=== PATIENT | male | born 1930 | race Caucasian/White ===

== ENCOUNTER 2017-01-25 20:00 | Emergency (ER) | payer OTHER, BC ==
[2017-01-25 20:11] VITALS: BP 124/77; PULSE 92; TEMP 98.7; BMI 27.7
--- NOTE | 2017-01-25 20:44 | PDOC ---
History of Present Illness - General History Source: Patient, Old Records Exam Limitations: No Limitations - History of Present Illness Initial Comments: 01/25/17 20:50 The patient is an 86 year old male, with a significant past medical history of hypertension, GERD, diverticulitis and prostate CA, who presents to the emergency department with abrasions to the bilateral palmar surfaces of the hands and right knee s/p mechanical trip and fall while walking his dog earlier this afternoon at approximately 1PM. The patient states that the dog lunged forward and pulled him along. The patient reports that he fell forward landing on outstretched hands in addition to his right knee. The patient denies head trauma or LOC. The patient immediately washed out the abrasions, applied bacitracin and applied bandages. The patient denies any other injury or trauma. The patient reports that his most recent Tetanus shot was 8 years ago. Allergies: None reported. Past Surgical History: Colon Resection; Bilateral Inguinal Hernia Repair. Social History: Former smoker. Reports occasional alcohol use. Denies drug use. PCP: Dr. Paul Meyer <Chelsey Cartagena - Last Filed: 01/25/17 20:57> <Luh Pickard - Last Filed: 01/26/17 03:04> - General Chief Complaint: Pain, Acute Stated Complaint: FELL WALKING DOG, ABRASIONS TO HANDS AND RIGHT KNE Time Seen by Provider: 01/25/17 20:10 Past History <Chelsey Cartagena - Last Filed: 01/25/17 20:57> - Past Medical History Anemia: No Asthma: No Cancer: Yes (PROSTATE) Cardiac Disorders: No CVA: Yes ("MICRO-INFARCTS" VISION PROBLEMS (RESOLVED)) COPD: No CHF: No Dementia: Yes (MILD) Diabetes: No GI Disorders: Yes (DIVERTICULITIS GERD) Disorders: Yes (PROSTATE CANCER) HTN: Yes Hypercholesterolemia: No Liver Disease: No Seizures: No Thyroid Disease: No - Surgical History Abdominal Surgery: Yes (COLON RESECTION FOR DIVERTICULITIS, BILATERAL INGUINAL HERNIA REPAIRED) Appendectomy: No Cardiac Surgery: No Cholecystectomy: No Lung Surgery: No Neurologic Surgery: No Orthopedic Surgery: Yes (EPIDURAL FOR PAIN) - Immunization History Td Vaccination: Yes (UTD) Immunization Up to Date: No - Psycho/Social/Smoking Cessation Hx Anxiety: No Suicidal Ideation: No Smoking Status: No Smoking History: Never smoked Have you smoked in the past 12 months: No Number of Cigarettes Smoked Daily: 0 If you are a former smoker, when did you quit?: 194 Information on smoking cessation initiated: No Hx Alcohol Use: Yes Drug/Substance Use Hx: No Substance Use Type: Alcohol Hx Substance Use Treatment: No <NeerajLuh Patterson - Last Filed: 01/26/17 03:04> - Past Medical History Allergies/Adverse Reactions: Allergies Allergy/AdvReac Type Severity Reaction Status Date / Time No Known Allergies Allergy Verified 01/25/17 20:02 Home Medications: Ambulatory Orders Multivitamin [Multivitamins] 1 each PO DAILY 04/26/13 Lisinopril/Hydrochlorothiazide [Lisinopril-Hctz 10-12.5 mg Tab] 1 each PO DAILY 02/10/14 Aspirin [Aspirin EC] 81 mg PO HS 05/03/15 Cephalexin Monohydrate [Keflex -] 500 mg PO Q8H #12 capsule 01/25/17 Omeprazole 20 mg PO DAILY 01/25/17 Review of Systems - Review of Systems Able to Perform ROS?: Yes Comments:: 01/25/17 20:50 CONSTITUTIONAL: Absent: fever, chills, diaphoresis, generalized weakness, malaise, loss of appetite HEENT: Absent: rhinorrhea, nasal congestion, throat pain, throat swelling, difficulty swallowing, mouth swelling, ear pain, eye pain, visual Changes CARDIOVASCULAR: Absent: chest pain, syncope, palpitations, irregular heart rate, lightheadedness , peripheral edema RESPIRATORY: Absent: cough, shortness of breath, dyspnea with exertion, orthopnea, wheezing, stridor, hemoptysis GASTROINTESTINAL: Absent: abdominal pain, abdominal distension, nausea, vomiting, diarrhea, constipation, melena, hematochezia GENITOURINARY: Absent: dysuria, frequency, urgency, hesitancy, hematuria, flank pain, genital pain MUSCULOSKELETAL: Absent: myalgia, arthralgia, joint swelling SKIN: Present: +Abrasions to the bilateral hands, right knee Absent: rash, itching, pallor HEMATOLOGIC/IMMUNOLOGIC: Absent: easy bleeding, easy bruising, lymphadenopathy, frequent infections ENDOCRINE: Absent: unexplained weight gain, unexplained weight loss, heat intolerance, cold intolerance NEUROLOGIC: Absent: headache, focal weakness or paresthesias, dizziness, unsteady gait, seizure, mental status changes, bladder or bowel incontinence PSYCHIATRIC: Absent: anxiety, depression, suicidal or homicidal ideation, hallucinations <Chelsey Cartagena - Last Filed: 01/25/17 20:57> *Physical Exam - Vital Signs Last Vital Signs Temp Pulse Resp BP Pulse Ox 98.7 F 92 H 16 124/77 99 01/25/17 20:08 01/25/17 20:08 01/25/17 20:08 01/25/17 20:08 01/25/17 20:08 - Physical Exam Comments: 01/25/17 20:57 GENERAL: The patient is awake, alert, and fully oriented, in no acute distress. HEAD: Normal with no signs of trauma. EYES: Pupils equal, round and reactive to light, extraocular movements intact, sclera anicteric, conjunctiva clear with no pallor. ENT: Ears normal, nares patent, oropharynx clear without exudates. Moist mucous membranes. NECK: Normal range of motion, supple without lymphadenopathy, JVD, or masses. LUNGS: Breath sounds equal, clear to auscultation bilaterally. No wheeze/ crackles. HEART: Regular rate and rhythm, normal S1 and S2 without murmur or rub. ABDOMEN: Soft/nontender/nondistended. BS wnl. No guarding or rebound. No palpable masses. No hepatosplenomegaly. EXTREMITIES: 2cm x 2cm non bleeding superficial abrasions of the bilateral midline proximal palmar aspects of the hands. Moderate point tenderness at the base of the thumb of the right hand. No deformity or ecchymosis noted. Mild edema of the bilateral proximal palms. Dorsal aspect of the distal right thigh there is a 3cm x 2cm nonbleeding full thickness skin avulsion with surrounding 2cm area of erythema and mild edema. Normal range of motion. No clubbing or cyanosis. No cords or tenderness. NEUROLOGICAL: Cranial nerves II through XII grossly intact. Normal speech, normal gait. PSYCH: Normal mood, normal affect. SKIN: Warm, dry, normal turgor, no rashes or lesions noted. <Chelsey Cartagena - Last Filed: 01/25/17 20:57> - Vital Signs Last Vital Signs Temp Pulse Resp BP Pulse Ox 98.7 F 92 H 16 124/77 99 01/25/17 20:08 01/25/17 20:08 01/25/17 20:08 01/25/17 20:08 01/25/17 20:08 <Luh Pickard - Last Filed: 01/26/17 03:04> Progress Note - Progress Note Progress Note: Documentation has been prepared under my direction and personally reviewed by me in its entirety. I attest that this documented accurately reflects all work, treatment, procedures and medical decision making performed by me. <Luh Pickard - Last Filed: 01/26/17 03:04> Medical Decision Making - Medical Decision Making As noted above, this 87-year-old man presents after falling while walking his dog several hours prior to presentation. Patient fell on hands and knees when dog lunged forward. No LOC/head or neck injury. No complaints other than bilateral hand and right knee injury. Exam as noted. Because of point tenderness at the base of his right hand, x-ray of that extremity performed. Interpretation by Dr. Lawson: No evidence of fracture dislocation Using sterile technique, wounds were cleansed and gently debrided using sterile normal saline. No obvious debris present in the wounds. Wounds covered with Xeroform dressing plus bacitracin ointment followed by sterile gauze/gauze roll. Patient will be treated with Keflex 500 mg 3 times a day for 4 days Patient will keep bandages on for 1 day then use bacitracin/Band-Aid as needed. Follow-up wound check will be with the patient's doctor within the next 3-4 days (Dr. meyer). He should return to the emergency room sooner if he notices increase in pain/swelling/redness in the area of the wounds. <Luh Pickard - Last Filed: 01/26/17 03:04> *DC/Admit/Observation/Transfer - Attestations Scribe Attestion: 01/25/17 20:46 Documentation prepared by Chelsey Cartagena, acting as medical equipment repair technician for Luh Pickard MD. <Chelsey Cartagena - Last Filed: 01/25/17 20:57> <Luh Pickard - Last Filed: 01/26/17 03:04> Diagnosis at time of Disposition: Skin abrasion, Avulsion of skin - Discharge Dispostion Disposition: HOME Condition at time of disposition: Stable - Prescriptions Prescriptions: Cephalexin Monohydrate [Keflex -] 500 mg PO Q8H #12 capsule - Referrals Referrals: Paul Meyer [Primary Care Provider] - 3 days - Patient Instructions Printed Discharge Instructions: DI for Abrasion Additional Instructions: Keflex 500 mg 3 times a day for the next 4 days Keep wound dry for 24 hours Keep original dressings in place for 24 hours then bacitracin/Band-Aid daily Follow-up with your general doctor for wound check in 3 days Return to ER if you have worsening pain/swelling or drainage from the wounds
[2017-01-25] MEDS ORDERED: CEPHALEXIN MONOHYDRATE 500 MG CAPSULE (UD) PO ONE (21:41)
[2017-01-25] MEDS ORDERED: CEPHALEXIN MONOHYDRATE 500 MG CAPSULE (UD) ONE (21:46)
== END 2017-01-25 21:50 | disposition home or self-care (01) ==
LOC: FER 20:00
DX: T14.8 Other injury of unspecified body region (principal); W18.39XA Other fall on same level, initial encounter; Y93.K1 Activity, walking an animal; Y92.9 Unspecified place or not applicable; Z85.46 Personal history of malignant neoplasm of prostate; F03.90 Unspecified dementia, unspecified severity, without behavioral disturbance, psychotic disturbance, mood disturbance, and anxiety; K21.9 Gastro-esophageal reflux disease without esophagitis; I10 Essential (primary) hypertension; Z86.73 Personal history of transient ischemic attack (TIA), and cerebral infarction without residual deficits; Z87.891 Personal history of nicotine dependence
CPT/HCPCS: 73130-TC-RT; 99281-25

== ENCOUNTER 2017-03-20 22:24 | Emergency (ER) | payer OTHER, BC ==
[2017-03-20 22:28] VITALS: BP 158/90; PULSE 68; TEMP 97.8; BMI 27.6
[2017-03-20 23:18] LABS: ALBUMIN 4.2 g/dl (3.5-5.0); ALK PHOS 49 U/L (32-92); ANION GAP 5 (8-16); BILIRUBIN,TOTAL 0.4 mg/dl (0.2-1.0); CALCIUM 9.4 mg/dl (8.4-10.2); CO2 30 mmol/L (22-28); CREATININE 1.5 mg/dl (0.6-1.3); GLUCOSE,RANDOM 133 mg/dl (74-106); SGOT/AST 18 U/L (10-42); SGPT/ALT 13 U/L (10-40); TOT PROT 6.5 g/dl (6.4-8.3)
[2017-03-20 23:21] LABS: CPK 73 IU/L (39-308)
[2017-03-20 23:32] LABS: TROPONIN I (DFP) < 0.03 ng/ml (0.03-0.50)
--- NOTE | 2017-03-21 00:31 | PDOC ---
History of Present Illness - General Chief Complaint: Chest Pain Stated Complaint: HTN, CHEST TWINGES Time Seen by Provider: 03/20/17 22:26 - History of Present Illness Initial Comments: This 87-year-old man with a history of hypertension and prostate carcinoma presents with a several hour history of intermittent "pinching-type" pain in the lateral aspect of his right chest. No history of trauma to this area. Pain is not worse with movement or with deep breathing. He has not experienced any shortness of breath, diaphoresis, nausea. Episodes of pain last seconds and resolve spontaneously. He has not noticed any rash in the area. Patient has a history of zoster, stating that he has had immunization for zoster since the original rash. Past History - Past Medical History Allergies/Adverse Reactions: Allergies Allergy/AdvReac Type Severity Reaction Status Date / Time No Known Allergies Allergy Verified 01/25/17 20:02 Home Medications: Ambulatory Orders Multivitamin [Multivitamins] 1 each PO DAILY 04/26/13 Lisinopril/Hydrochlorothiazide [Lisinopril-Hctz 10-12.5 mg Tab] 1 each PO DAILY 02/10/14 Aspirin [Aspirin EC] 81 mg PO HS 05/03/15 Cephalexin Monohydrate [Keflex -] 500 mg PO Q8H #12 capsule 01/25/17 Omeprazole 20 mg PO DAILY 01/25/17 Anemia: No Asthma: No Cancer: Yes (PROSTATE) Cardiac Disorders: No CVA: Yes ("MICRO-INFARCTS" VISION PROBLEMS (RESOLVED)) COPD: No CHF: No Dementia: Yes (MILD) Diabetes: No GI Disorders: Yes (DIVERTICULITIS GERD) Disorders: Yes (PROSTATE CANCER) HTN: Yes Hypercholesterolemia: No Liver Disease: No Seizures: No Thyroid Disease: No - Surgical History Abdominal Surgery: Yes (COLON RESECTION FOR DIVERTICULITIS, BILATERAL INGUINAL HERNIA REPAIRED) Appendectomy: No Cardiac Surgery: No Cholecystectomy: No Lung Surgery: No Neurologic Surgery: No Orthopedic Surgery: Yes (EPIDURAL FOR PAIN) - Immunization History Td Vaccination: Yes (UTD) Immunization Up to Date: No - Psycho/Social/Smoking Cessation Hx Anxiety: No Suicidal Ideation: No Smoking Status: No Smoking History: Unknown if ever smoked Have you smoked in the past 12 months: No Number of Cigarettes Smoked Daily: 0 If you are a former smoker, when did you quit?: 1940 Information on smoking cessation initiated: No Hx Alcohol Use: Yes Drug/Substance Use Hx: No Substance Use Type: Alcohol Hx Substance Use Treatment: No *Physical Exam - Vital Signs Last Vital Signs Temp Pulse Resp BP Pulse Ox 97.8 F 68 18 158/90 100 03/20/17 22:25 03/20/17 22:25 03/20/17 22:25 03/20/17 22:25 03/20/17 22:25 - Physical Exam Comments: GENERAL: Elderly man, alert and oriented 3, in no acute distress HEAD: Normal with no signs of trauma. EYES: PERRLA, EOMI, sclera anicteric, conjunctiva clear. ENT: Ears normal, nares patent, oropharynx clear without exudates. Dry mucous membranes. NECK: Normal range of motion, supple without lymphadenopathy, JVD, or masses. LUNGS: Breath sounds equal, clear to auscultation bilaterally. No wheezes, and no crackles. CHEST WALL: No rash/crepitus/tenderness noted HEART:Regular rate and rhythm, normal S1 and S2 without murmur, rub or gallop. ABDOMEN:.normal bowel sounds No guarding,tenderness or rebound.No masses No distention. EXTREMITIES: Normal range of motion, no edema. No clubbing or cyanosis. No erythema, or tenderness. NEUROLOGICAL: Cranial nerves II through XII grossly intact. Normal speech. No focal neurological deficits. MUSCULOSKELETAL: Back non-tender to palpation, no CVA tenderness SKIN: Warm, Dry, normal turgor, no rashes or lesions noted. 12-lead electrocardiogram reveals normal sinus rhythm at 58 bpm. There is poor R-wave progression but no other acute ST or T-wave abnormalities. Mobile, intervals are normal Heart Score/ECG Review - History History: Slightly suspicious - Electrocardiogram EKG: Normal - Age Age: >/= 65 - Risk Factors Risk Factors Heart Score: Yes Hx Hypertension Based on the list above the patient has:: 1-2 risk factors - Troponin Troponin: </= normal limit - Score Heart Score - Total: 3 ED Treatment Course - LABORATORY CBC & Chemistry Diagram: 03/20/17 22:55 - ADDITIONAL ORDERS Additional order review: Laboratory Results 03/20/17 22:55 Sodium 137 Potassium 4.2 Chloride 102 Carbon Dioxide 30 H Anion Gap 5 L BUN 31 H Creatinine 1.5 H Creat Clearance w eGFR 44.27 Random Glucose 133 H Calcium 9.4 Total Bilirubin 0.4 AST 18 ALT 13 Alkaline Phosphatase 49 Creatine Kinase 73 Troponin I < 0.03 L Total Protein 6.5 Albumin 4.2 Medical Decision Making - Medical Decision Making This 87-year-old man presents with intermittent, very brief ("seconds long") episodes of pinching type pain in the lateral aspect of his left chest wall. He has no associated symptoms with this. He has a history of zoster rash in the past although he does not remember this type of discomfort with it. He has also received zoster immunization. Exam is unremarkable. Only abnormality seen on the 12-lead electrocardiogram is poor R-wave progression. Unfortunately, there is no previous EKG tracing available. Laboratory evaluation notable for BUN of 35 and a creatinine of 1.5. Patient does have hypertension and may have chronic renal insufficiency, however he is unaware of the being told in the past that he had decrease in renal function. Troponin is negative. The patient is currently comfortable and will be discharged with close follow- up with his general doctor. Copies of his labs and EKG will be given to the patient with his discharge instructions. He is strongly urged to see his doctor in the next 2-3 days in order to have a repeat of his chemistry profile, specifically BUN/creatinine. Although this likely may be early zoster, the patient should return to the ER if he has any worsening of his pain, shortness of breath, palpitations. He also should return if he develops a rash. He can also follow-up in the latter case with his general doctor although he should present within 2-3 days after the rash development in order for antiviral medications to be effective. *DC/Admit/Observation/Transfer Diagnosis at time of Disposition: Atypical chest pain - Discharge Dispostion Disposition: HOME Condition at time of disposition: Stable - Referrals Referrals: Paul Meyer [Primary Care Provider] - - Patient Instructions Printed Discharge Instructions: DI for Atypical Chest Pain Additional Instructions: Avoid strenuous activity involving upper body for the next several days Drink plenty of fluids Return to ER if you if persistent or severe pain Follow-up with your general doctor within the next week
--- NOTE | 2017-03-22 21:58 | EKG ---
Test Reason : Blood Pressure : / mmHG Vent. Rate : 058 BPM Atrial Rate : 058 BPM P-R Int : 208 ms QRS Dur : 084 ms QT Int : 428 ms P-R-T Axes : 022 -20 024 degrees QTc Int : 420 ms SINUS BRADYCARDIA WITH 1ST DEGREE A-V BLOCK CANNOT RULE OUT ANTERIOR INFARCT , AGE UNDETERMINED ABNORMAL ECG NO PREVIOUS ECGS AVAILABLE Confirmed by HANNAH ESPINAL MD ([id number]) on 03/22/2017 9:57:42 PM Referred By: MD HARPER Confirmed By:HANNAH ESPINAL MD
== END 2017-03-21 00:47 | disposition home or self-care (01) ==
LOC: FER 22:24
DX: R07.89 Other chest pain (principal); Z86.73 Personal history of transient ischemic attack (TIA), and cerebral infarction without residual deficits; F03.90 Unspecified dementia, unspecified severity, without behavioral disturbance, psychotic disturbance, mood disturbance, and anxiety; K21.9 Gastro-esophageal reflux disease without esophagitis; Z85.46 Personal history of malignant neoplasm of prostate; I10 Essential (primary) hypertension
CPT/HCPCS: 36415; 80053; 84484; 93005; 99281-25

== ENCOUNTER 2017-04-10 20:13 | Emergency (ER) | payer OTHER, BC ==
[2017-04-10 20:24] LABS: URINE APPEARANCE Clear; URINE BILIRUBIN Negative (NEGATIVE); URINE GLUCOSE (UA) Negative (NEGATIVE); URINE KETONE Negative (NEGATIVE); URINE NITRITE Positive (NEGATIVE); URINE UROBILINOGEN 0.2 (0.2-1.0)
[2017-04-10 20:25] VITALS: BP 146/94; PULSE 71; TEMP 98.8; BMI 27.6
[2017-04-10 20:26] LABS: URINE BLOOD 1+ (NEGATIVE); URINE COLOR YELLOW; URINE LEUK ESTERASE 2+ (NEGATIVE); URINE PROTEIN 2+ (NEGATIVE)
--- NOTE | 2017-04-10 21:05 | PDOC ---
History of Present Illness - General History Source: Patient Exam Limitations: No Limitations - History of Present Illness Initial Comments: 04/10/17 22:01 The patient is a 87 year old male, with a significant past medical history of hypertension, prostate cancer(2004), TIA, mild dementia, diverticulitis, and GERD, who presents to the emergency department complaining of increased urinary frequency for approximately 3 days. The patient reports he initially experienced burning with urination with associated urinary frequency. Patient reports he has to urinate every 15 minutes. Patient reports he has a hx of prostate CA and urinary retention, which have since resolved. Patient reports his symptoms are different than those from his prostate CA. He denies any hematuria, urgency, or flank pain. Patient reports some mild back pain, which he states is chronic. He denies any abdominal pain, nausea, vomiting, diarrhea, or constipation. Patient denies any fever, chills, or weakness. Patient reports he recently traveled to [place] and had no sick contacts. Allergies: NKDA Past Surgical History: Colon resection for diverticulitis, bilateral inguinal hernia repair, epidural Social History: Reports occasional ETOH use. Non smoker. No recreational drug use. PCP: Dr. Paul Meyer <Emily Garcia - Last Filed: 04/10/17 22:01> <Luh Pickard - Last Filed: 04/11/17 01:19> - General Chief Complaint: Urinary Problem Stated Complaint: DIFFICULTY URINATING Time Seen by Provider: 04/10/17 20:33 Past History <Emily Garcia - Last Filed: 04/10/17 22:01> - Past Medical History Anemia: No Asthma: No Cancer: Yes (PROSTATE) Cardiac Disorders: No CVA: Yes ("MICRO-INFARCTS" VISION PROBLEMS (RESOLVED)) COPD: No CHF: No Dementia: Yes (MILD) Diabetes: No GI Disorders: Yes (DIVERTICULITIS GERD) Disorders: Yes (PROSTATE CANCER) HTN: Yes Hypercholesterolemia: No Liver Disease: No Seizures: No Thyroid Disease: No - Surgical History Abdominal Surgery: Yes (COLON RESECTION FOR DIVERTICULITIS, BILATERAL INGUINAL HERNIA REPAIRED) Appendectomy: No Cardiac Surgery: No Cholecystectomy: No Lung Surgery: No Neurologic Surgery: No Orthopedic Surgery: Yes (EPIDURAL FOR PAIN) - Immunization History Td Vaccination: Yes (UTD) Immunization Up to Date: No - Psycho/Social/Smoking Cessation Hx Anxiety: No Suicidal Ideation: No Smoking Status: No Smoking History: Never smoked Have you smoked in the past 12 months: No Number of Cigarettes Smoked Daily: 0 If you are a former smoker, when did you quit?: 1940 Hx Alcohol Use: Yes Drug/Substance Use Hx: No Substance Use Type: Alcohol Hx Substance Use Treatment: No <Luh Pickard - Last Filed: 04/11/17 01:19> - Past Medical History Allergies/Adverse Reactions: Allergies Allergy/AdvReac Type Severity Reaction Status Date / Time No Known Allergies Allergy Verified 01/25/17 20:02 Home Medications: Ambulatory Orders Multivitamin [Multivitamins] 1 each PO DAILY 04/26/13 Lisinopril/Hydrochlorothiazide [Lisinopril-Hctz 10-12.5 mg Tab] 1 each PO DAILY 02/10/14 Aspirin [Aspirin EC] 81 mg PO HS 05/03/15 Omeprazole 20 mg PO DAILY 01/25/17 Ciprofloxacin [Cipro -] 500 mg PO Q12H #10 tablet 04/10/17 Vit C/Vit E AC/Lut/Copper/Zinc [Preservision Softgel] 1 each PO DAILY 04/10/17 Review of Systems - Review of Systems Able to Perform ROS?: Yes Comments:: 04/10/17 22:01 CONSTITUTIONAL: Absent: fever, no chills, no fatigue EYES: Absent: visual changes ENT: Absent: ear pain, no sore throat CARDIOVASCULAR: Absent: chest pain, no palpitations RESPIRATORY: Absent: cough, no SOB GI: Absent: abdominal pain, no nausea, no vomiting, no constipation, no diarrhea GENITOURINARY: Present: +dysuria, +frequency Absent: no hematuria MUSCULOSKELETAL: Present: +lower back pain. Absent: no arthralgia, no myalgia SKIN: Absent: rash NEURO: Absent: headache <GarciaGiomilsy - Last Filed: 04/10/17 22:01> *Physical Exam - Vital Signs Last Vital Signs Temp Pulse Resp BP Pulse Ox 98.8 F 71 18 146/94 100 04/10/17 20:22 04/10/17 20:22 04/10/17 20:22 04/10/17 20:22 04/10/17 20:22 <Garcia,Giomilsy - Last Filed: 04/10/17 22:01> - Vital Signs Last Vital Signs Temp Pulse Resp BP Pulse Ox 98.8 F 71 18 146/94 100 04/10/17 20:22 04/10/17 20:22 04/10/17 20:22 04/10/17 20:22 04/10/17 20:22 - Physical Exam Comments: GENERAL: Elderly man, alert and oriented 3, in no acute distress HEAD: Normal with no signs of trauma. EYES: PERRLA, EOMI, sclera anicteric, conjunctiva clear. ENT: Ears normal, nares patent, oropharynx clear without exudates. Dry mucous membranes. NECK: Normal range of motion, supple without lymphadenopathy, JVD, or masses. LUNGS: Breath sounds equal, clear to auscultation bilaterally. No wheezes, and no crackles. HEART:Regular rate and rhythm, normal S1 and S2 without murmur, rub or gallop. ABDOMEN:.normal bowel sounds No guarding,tenderness or rebound.No masses No distention. EXTREMITIES: Normal range of motion, no edema. No clubbing or cyanosis. No erythema, or tenderness. NEUROLOGICAL: Cranial nerves II through XII grossly intact. Normal speech. No focal neurological deficits. MUSCULOSKELETAL: Back non-tender to palpation, no CVA tenderness SKIN: Warm, Dry, normal turgor, no rashes or lesions noted. <Luh Pickard - Last Filed: 04/11/17 01:19> ED Treatment Course - ADDITIONAL ORDERS Additional order review: Laboratory Results 04/10/17 20:15 Urine Color Yellow Urine Appearance Clear Urine pH 5.0 Ur Specific [place] 1.025 Urine Protein 2+ H Urine Glucose (UA) Negative Urine Ketones Negative Urine Blood 1+ H Urine Nitrite Positive Urine Bilirubin Negative Urine Urobilinogen 0.2 Urine RBC 0-2 Urine WBC Many Ur Epithelial Cells Few Urine Bacteria Many <Emily Garcia - Last Filed: 04/10/17 22:01> - ADDITIONAL ORDERS Additional order review: Laboratory Results 04/10/17 20:15 Urine Color Yellow Urine Appearance Clear Urine pH 5.0 Ur Specific [place] 1.025 Urine Protein 2+ H Urine Glucose (UA) Negative Urine Ketones Negative Urine Blood 1+ H Urine Nitrite Positive Urine Bilirubin Negative Urine Urobilinogen 0.2 <Luh Pickard - Last Filed: 04/11/17 01:19> Progress Note - Progress Note Progress Note: Documentation has been prepared under my direction and personally reviewed by me in its entirety. I attest that this documented accurately reflects all work, treatment, procedures and medical decision making performed by me. <Luh Pickard - Last Filed: 04/11/17 01:19> Medical Decision Making - Medical Decision Making As noted above, this 87-year-old man with a history of urinary complaints and prostatic hypertrophy, presents with a few day history of dysuria/urinary frequency. He has had no fever, nausea/vomiting, back pain. No history of pyelonephritis. Exam as noted above reveals no abdominal or CVA/flank tenderness. Urinalysis consistent with acute UTI with positive nitrite, many bacteria/many WBCs/few epis on microscopic exam. Patient has no known medication ALLERGIES. He will be started on ciprofloxacin 500 mg twice a day for 5 days. First dose will be given here in the emergency room. The patient already has an appointment with his urologist scheduled for April 15. He should return to the ER if he experiences worsening pain/persistent dysuria or frequency/fever or vomiting. <Luh Pickard - Last Filed: 04/11/17 01:19> *DC/Admit/Observation/Transfer - Attestations Scribe Attestion: 04/10/17 22:03 Documentation prepared by Emily Garcia, acting as lpn medical assistant for Luh Pickard MD. <Emily Garcia - Last Filed: 04/10/17 22:01> <Luh Pickard - Last Filed: 04/11/17 01:19> Diagnosis at time of Disposition: UTI (urinary tract infection) Qualifiers: Urinary tract infection type: acute cystitis Hematuria presence: without hematuria Qualified Code(s): N30.00 - Acute cystitis without hematuria - Discharge Dispostion Disposition: HOME Condition at time of disposition: Stable - Prescriptions Prescriptions: Ciprofloxacin [Cipro -] 500 mg PO Q12H #10 tablet - Referrals Referrals: Paul Meyer [Primary Care Provider] - - Patient Instructions Printed Discharge Instructions: Urinary Tract Infection Additional Instructions: Drink plenty of water Ciprofloxacin 500 mg twice a day for 5 days Return to ER if you experience worsening pain/vomiting/fever Follow-up with your urologist on Thursday, April 15 as scheduled
[2017-04-10 21:39] LABS: URINE BACTERIA MANY /hpf (NEGATIVE); URINE RBC 0-2 /hpf (0-3); URINE WBC MANY (3-5)
[2017-04-10] MEDS ORDERED: CIPROFLOXACIN 500 MG TABLET (RESTRICTED TO ID) PO ONE (22:12)
[2017-04-10] MEDS ORDERED: CIPROFLOXACIN 250 MG TABLET (RESTRICTED TO ID) PO ONE (22:16)
== END 2017-04-10 22:23 | disposition home or self-care (01) ==
LOC: FER 20:13
DX: N30.00 Acute cystitis without hematuria (principal); Z87.891 Personal history of nicotine dependence; I10 Essential (primary) hypertension; Z85.46 Personal history of malignant neoplasm of prostate; F03.90 Unspecified dementia, unspecified severity, without behavioral disturbance, psychotic disturbance, mood disturbance, and anxiety; K21.9 Gastro-esophageal reflux disease without esophagitis; Z86.73 Personal history of transient ischemic attack (TIA), and cerebral infarction without residual deficits
CPT/HCPCS: 81003; 81015; 87086; 87186; 99281-25

== ENCOUNTER 2017-08-04 15:09 | Emergency (ER) | payer OTHER, BC ==
--- NOTE | 2017-08-04 15:19 | PDOC ---
History of Present Illness - General History Source: Patient Exam Limitations: No Limitations - History of Present Illness Initial Comments: 08/04/17 15:24 The patient is a 87 year old male, with a significant past medical history of hypertension, prostate cancer(2004), TIA, mild dementia, diverticulitis, and GERD, who presents to the emergency department with a bump to his left anne. A week ago, the patient was seated at his computer desk and hit his left leg against a shelf as he was trying to cross his legs. He states that the bump has not decreased in size and he is still experiencing pain. The patient was unable to schedule an appointment with his PCP and decided to report to the ED for further evaluation. He denies having any other injuries or symptoms. Allergies: NKDA Past Surgical History: Colon resection for diverticulitis, bilateral inguinal hernia repair, epidural Social History: Reports occasional ETOH use. Non smoker. No recreational drug use. PCP: Dr. Paul Meyer <Tish Pina - Last Filed: 08/04/17 15:24> <Lily Gaona - Last Filed: 08/04/17 15:55> - General Chief Complaint: Injury Stated Complaint: LEFT LEG PAIN Time Seen by Provider: 08/04/17 15:16 Past History <Tish Pina - Last Filed: 08/04/17 15:24> - Past Medical History Anemia: No Asthma: No Cancer: Yes (PROSTATE) Cardiac Disorders: No CVA: Yes ("MICRO-INFARCTS" VISION PROBLEMS (RESOLVED)) COPD: No CHF: No Dementia: Yes (MILD) Diabetes: No GI Disorders: Yes (DIVERTICULITIS GERD) Disorders: Yes (PROSTATE CANCER) HTN: Yes Hypercholesterolemia: No Liver Disease: No Seizures: No Thyroid Disease: No - Surgical History Abdominal Surgery: Yes (COLON RESECTION FOR DIVERTICULITIS, BILATERAL INGUINAL HERNIA REPAIRED) Appendectomy: No Cardiac Surgery: No Cholecystectomy: No Lung Surgery: No Neurologic Surgery: No Orthopedic Surgery: Yes (EPIDURAL FOR PAIN) - Immunization History Td Vaccination: Yes (UTD) Immunization Up to Date: No - Suicide/Smoking/Psychosocial Hx Smoking Status: No Smoking History: Unknown if ever smoked Have you smoked in the past 12 months: No Number of Cigarettes Smoked Daily: 0 If you are a former smoker, when did you quit?: 1940 Hx Alcohol Use: Yes Drug/Substance Use Hx: No Substance Use Type: Alcohol Hx Substance Use Treatment: No <Lily Gaona - Last Filed: 08/04/17 15:55> - Past Medical History Allergies/Adverse Reactions: Allergies Allergy/AdvReac Type Severity Reaction Status Date / Time No Known Allergies Allergy Verified 08/04/17 15:10 Home Medications: Ambulatory Orders Multivitamin [Multivitamins] 1 each PO DAILY 04/26/13 Aspirin [Aspirin EC] 81 mg PO HS 05/03/15 Omeprazole 20 mg PO DAILY 01/25/17 Beta-Carotene(A) W-C and E/Min [Ocuvite (Nf)] 1 tab PO DAILY 08/04/17 Lisinopril [Prinivil] 10 mg PO DAILY 08/04/17 Review of Systems - Review of Systems Able to Perform ROS?: Yes Comments:: 08/04/17 15:25 GENERAL/CONSTITUTIONAL: No fever or chills. No weakness. HEAD, EYES, EARS, NOSE AND THROAT: No change in vision. No ear pain or discharge. No sore throat. CARDIOVASCULAR: No chest pain or shortness of breath. RESPIRATORY: No cough, wheezing, or hemoptysis. SKIN: No rash GASTROINTESTINAL: No nausea, vomiting, diarrhea or constipation. GENITOURINARY: No dysuria, frequency, or change in urination. MUSCULOSKELETAL: No joint swelling or pain. No neck or back pain. EXTREMITIES: (+)left leg pain. NEUROLOGIC: No headache, vertigo, loss of consciousness, or change in strength/ sensation. ENDOCRINE: No increased thirst. No abnormal weight change. HEMATOLOGIC/LYMPHATIC: No anemia, easy bleeding, or history of blood clots. ALLERGIC/IMMUNOLOGIC: No hives or skin allergy. <Tish Pina - Last Filed: 08/04/17 15:24> *Physical Exam - Physical Exam Comments: GENERAL: Awake, alert, and fully oriented, in no acute distress HEAD: No signs of trauma EYES: PERRLA, EOMI, sclera anicteric, conjunctiva clear ENT: Auricles normal inspection, hearing grossly normal, nares patent, oropharynx clear without exudates. Moist mucosa NECK: Normal ROM, supple, no lymphadenopathy, JVD, or masses LUNGS: Breath sounds equal, clear to auscultation bilaterally. No wheezes, and no crackles HEART: Regular rate and rhythm, normal S1 and S2, no murmurs, rubs or gallops ABDOMEN: Soft, nontender, normoactive bowel sounds. No guarding, no rebound. No masses EXTREMITIES: L anne with swelling to mid-anne with fluctuant area. No induration , no erythema, no induration. Remainder of extremities with normal range of motion, no edema. No clubbing or cyanosis. No cords, erythema, or tenderness NEUROLOGICAL: Cranial nerves II through XII grossly intact. Normal speech, normal gait SKIN: Warm, Dry, normal turgor, no rashes or lesions noted. <Lily Gaona - Last Filed: 08/04/17 15:55> *DC/Admit/Observation/Transfer - Attestations Scribe Attestion: 08/04/17 15:25 Documentation prepared by Tish Pina, acting as medical billing coordinator for Lily Gaona MD. <Tish Pina - Last Filed: 08/04/17 15:24> - Discharge Dispostion Admit: No <Lily Gaona - Last Filed: 08/04/17 15:55> Diagnosis at time of Disposition: Hematoma - Discharge Dispostion Disposition: HOME Condition at time of disposition: Stable
[2017-08-04 15:26] VITALS: BP 137/81; PULSE 68; TEMP 98; BMI 27.6
== END 2017-08-04 16:06 | disposition home or self-care (01) ==
LOC: FER 15:09
DX: S80.12XA Contusion of left lower leg, initial encounter (principal); X58.XXXA Exposure to other specified factors, initial encounter; Y92.9 Unspecified place or not applicable; I10 Essential (primary) hypertension; K21.9 Gastro-esophageal reflux disease without esophagitis; Z85.46 Personal history of malignant neoplasm of prostate; Z86.73 Personal history of transient ischemic attack (TIA), and cerebral infarction without residual deficits
CPT/HCPCS: 76882; 99281-25

== ENCOUNTER 2018-07-19 20:11 | Emergency (ER) | payer OTHER, BC ==
[2018-07-19] MEDS ORDERED: TETRACAINE 0.5% OPHTH SOLN 2 ML BOTTLE ONE (20:16)
--- NOTE | 2018-07-19 20:16 | PDOC ---
History of Present Illness - History of Present Illness Initial Comments: The patient is a 88 year old male, with a significant PMH of HTN, prostate cancer (2004), TIA, mild dementia, diverticulitis, and GERD, who presents to the emergency department today complaining of bilateral eye erythema and itching for one day. Patient notes that his pointed out that his eyes were abnormally red and tearing earlier this afternoon. He also notes his eyes are significantly itchy, and he has been rubbing them consequently. He denies any pain to the eyes, change in vision, photophobia, new contacts, or changes in household products. Patient reports having a cold this past week, but states it has progressively diminished since. The patient denies chest pain, shortness of breath, headache and dizziness. Denies fever, chills, nausea, vomit, diarrhea and constipation. Denies dysuria, frequency, urgency and hematuria. Allergies: NKA Past surgical history: Colon resection for diverticulitis, bilateral inguinal hernia repair, and epidural Social history: Occasional EtOH use, denies tobacco or recreational drug use PCP: Dr. Meyer Opthamologist: Dr. Willson 07/19/18 20:34 <Lali Holt - Last Filed: 07/19/18 20:34> - General History Source: Patient Exam Limitations: No Limitations <Laura Mendoza - Last Filed: 07/20/18 00:59> - General Chief Complaint: Eye Problem Stated Complaint: ITCHING AND REDNESS TO BOTH EYES Time Seen by Provider: 07/19/18 20:16 Past History <Lali Holt - Last Filed: 07/19/18 20:34> - Past Medical History Anemia: No Asthma: No Cancer: Yes (PROSTATE) Cardiac Disorders: No CVA: Yes ("MICRO-INFARCTS" VISION PROBLEMS (RESOLVED)) COPD: No CHF: No Dementia: Yes (MILD) Diabetes: No GI Disorders: Yes (DIVERTICULITIS GERD) Disorders: Yes (PROSTATE CANCER) HTN: Yes Hypercholesterolemia: No Liver Disease: No Seizures: No Thyroid Disease: No - Surgical History Abdominal Surgery: Yes (COLON RESECTION FOR DIVERTICULITIS, BILATERAL INGUINAL HERNIA REPAIRED) Appendectomy: No Cardiac Surgery: No Cholecystectomy: No Lung Surgery: No Neurologic Surgery: No Orthopedic Surgery: Yes (EPIDURAL FOR PAIN) - Immunization History Td Vaccination: Yes (UTD) Immunization Up to Date: No - Suicide/Smoking/Psychosocial Hx Smoking Status: No Smoking History: Unknown if ever smoked Have you smoked in the past 12 months: No Number of Cigarettes Smoked Daily: 0 If you are a former smoker, when did you quit?: 1940 Hx Alcohol Use: Yes Drug/Substance Use Hx: No Substance Use Type: Alcohol Hx Substance Use Treatment: No <Laura Mendoza - Last Filed: 07/20/18 00:59> - Past Medical History Allergies/Adverse Reactions: Allergies Allergy/AdvReac Type Severity Reaction Status Date / Time No Known Allergies Allergy Verified 07/19/18 20:20 Home Medications: Ambulatory Orders Multivitamin [Multivitamins] 1 each PO DAILY 04/26/13 Aspirin [Aspirin EC] 81 mg PO HS 05/03/15 Omeprazole 20 mg PO DAILY 01/25/17 Beta-Carotene(A) W-C and E/Min [Ocuvite (Nf)] 1 tab PO DAILY 08/04/17 Lisinopril [Prinivil] 10 mg PO DAILY 08/04/17 Ciprofloxacin 0.3% Eye Drops [Ciloxan 0.3% Eye Drops -] 1 drop OU BID 3 Days #1 bottle 07/19/18 Tetrahydrozoline HCl/Zinc Sulf [Visine Allergy Relief Drop] 1 drop OU Q6H PRN # 1 bottle 07/19/18 Review of Systems - Review of Systems Comments:: GENERAL/CONSTITUTIONAL: No fever or chills. No weakness. HEAD, EYES, EARS, NOSE AND THROAT: +Bilateral eye erythema, itching, and tearing. No change in vision. No ear pain or discharge. No sore throat. CARDIOVASCULAR: No chest pain or shortness of breath. RESPIRATORY: No cough, wheezing, or hemoptysis. GASTROINTESTINAL: No nausea, vomiting, diarrhea or constipation. GENITOURINARY: No dysuria, frequency, or change in urination. MUSCULOSKELETAL: No joint or muscle swelling or pain. No neck or back pain. SKIN: No rash NEUROLOGIC: No headache, vertigo, loss of consciousness, or change in strength/ sensation. ENDOCRINE: No increased thirst. No abnormal weight change. HEMATOLOGIC/LYMPHATIC: No anemia, easy bleeding, or history of blood clots. ALLERGIC/IMMUNOLOGIC: No hives or skin allergy. 07/19/18 20:35 <Lali Holt - Last Filed: 07/19/18 20:34> *Physical Exam - Vital Signs Last Vital Signs Temp Pulse Resp BP Pulse Ox 97.8 F 66 16 148/88 100 07/19/18 20:16 07/19/18 20:16 07/19/18 20:16 07/19/18 20:16 07/19/18 20:16 - Physical Exam Comments: GENERAL: The patient is in no acute distress. HEAD: Normal with no signs of trauma. EYES: +Conjunctiva irritated and edematous. +Visual acuity 20/20 with bifocals. PERRLA, EOMI, sclera anicteric. ENT: Ears normal, nares patent, oropharynx clear without exudates. Moist mucous membranes. NECK: Normal range of motion, supple without lymphadenopathy, JVD, or masses. LUNGS: Breath sounds equal, clear to auscultation bilaterally. No wheezes, and no crackles. HEART:Regular rate and rhythm, normal S1 and S2 without murmur, rub or gallop. ABDOMEN: Soft, nontender, normoactive bowel sounds. No guarding, no rebound. No masses palpable. EXTREMITIES: Normal range of motion, no edema. No clubbing or cyanosis. No erythema, or tenderness. NEUROLOGICAL: Cranial nerves II through XII grossly intact. Normal speech. No focal neurological deficits. MUSCULOSKELETAL: Back non-tender to palpation, no CVA tenderness SKIN: Warm, Dry, normal turgor, no rashes or lesions noted. 07/19/18 20:35 <Lali Holt - Last Filed: 07/19/18 20:34> Moderate Sedation - Procedure Monitoring Vital Signs: Procedure Monitoring Vital Signs Temperature 97.8 F 07/19/18 20:16 Pulse Rate 66 07/19/18 20:16 Respiratory Rate 16 07/19/18 20:16 Blood Pressure 148/88 07/19/18 20:16 O2 Sat by Pulse Oximetry (%) 100 07/19/18 20:16 <Lali Holt - Last Filed: 07/19/18 20:34> Medical Decision Making - Medical Decision Making 07/20/18 00:52 88 yo M presenting with chemosis of both eyes Pt states this is related to itching both eyes no new exposures to any chemicals Symptoms began today Eyes are injected Less likely infectious conjunctivitis (but pt is concerned because he is about to see his family members and doesn't want to be contagious) Will give: Cipro drops Visine Pt can take antihistamine for itching Follow up with [facility] [employer] clinical Impression: allergic conjunctivitis, initial presentation <Laura Mendoza - Last Filed: 07/20/18 00:59> *DC/Admit/Observation/Transfer - Attestations Scribe Attestion: 07/19/18 20:35 Documentation prepared by MABEL Brar, acting as medical technologist prn for Laura Mendoza MD. <Lali Holt - Last Filed: 07/19/18 20:34> - Discharge Dispostion Decision to Admit order: No <Laura Mendoza - Last Filed: 07/20/18 00:59> Diagnosis at time of Disposition: Allergic conjunctivitis Qualifiers: Laterality: bilateral Qualified Code(s): H10.13 - Acute atopic conjunctivitis, bilateral - Discharge Dispostion Disposition: HOME Condition at time of disposition: Stable - Prescriptions Prescriptions: Ciprofloxacin 0.3% Eye Drops [Ciloxan 0.3% Eye Drops -] 1 drop OU BID 3 Days #1 bottle Tetrahydrozoline HCl/Zinc Sulf [Visine Allergy Relief Drop] 1 drop OU Q6H PRN # 1 bottle PRN Reason: eye irritation - Patient Instructions Printed Discharge Instructions: DI for Conjunctivitis Additional Instructions: Return to the emergency department immediately with ANY new, persistent or worsening symptoms. Continue any medications as previously prescribed by your physician. You should follow up with your [employer] next week regarding today's emergency department visit. . Please make sure your doctor reviews the results of your emergency evaluation. Thank you for coming to the [facility] today for your care. It was a pleasure to see you today. Please note that your evaluation is INCOMPLETE until you follow-up with your doctor.
[2018-07-19] MEDS ORDERED: FLUORESCEIN NA 1 EA STRIP ONE (20:17)
[2018-07-19 20:51] VITALS: BP 148/88; PULSE 66; TEMP 97.8; BMI 26.9
== END 2018-07-19 20:35 | disposition home or self-care (01) ==
LOC: FER 20:11
DX: H10.13 Acute atopic conjunctivitis, bilateral (principal); I10 Essential (primary) hypertension; K21.9 Gastro-esophageal reflux disease without esophagitis; K57.92 Diverticulitis of intestine, part unspecified, without perforation or abscess without bleeding; Z85.46 Personal history of malignant neoplasm of prostate
CPT/HCPCS: 99281-25

== ENCOUNTER 2019-03-27 13:23 | Emergency (ER) | payer OTHER, BC ==
[2019-03-27 13:38] VITALS: BP 140/88; PULSE 68; TEMP 98.1; BMI 27.3
--- NOTE | 2019-03-27 14:02 | PDOC ---
History of Present Illness - General Chief Complaint: Bite Stated Complaint: INSECT BITE TO RIGHT INNER ARM VERY ITCHY Time Seen by Provider: 03/27/19 13:32 - History of Present Illness Initial Comments: 03/27/19 14:14 89yo M hx HTN, prostate cancer (2004), TIA, mild dementia, diverticulitis, and GERD presents to the ED with persistent itching to a bug bite for 7 days. Pt reports a bump to the ventral aspect of distal forearm initially that has been red and itchy. He tried an oral antihistamine once, two days ago which helped but has not taken any since. Over the last two days the redness around the bite has increased and he has also developed some tenderness to the area. He was visiting a friend in the city today, and on his way back home, decided to get it checked out. Denies associated fevers, chills, N/V/D, headache, dizziness, weakness/numbness, cp, sob, abd pain, urinary sxs. No recent travel. Past History - Past Medical History Allergies/Adverse Reactions: Allergies Allergy/AdvReac Type Severity Reaction Status Date / Time No Known Allergies Allergy Verified 03/27/19 13:25 Home Medications: Ambulatory Orders Aspirin [Aspirin EC] 81 mg PO HS 05/03/15 Omeprazole 20 mg PO DAILY 01/25/17 Beta-Carotene(A) W-C and E/Min [Ocuvite (Nf)] 1 tab PO DAILY 08/04/17 Lisinopril [Prinivil] 20 mg PO DAILY 08/04/17 Atorvastatin Ca [Lipitor] 5 mg PO HS 03/27/19 Cephalexin [Keflex] 500 mg PO QID #28 capsule 03/27/19 Multivit-Min/FA/Lycopen/Lutein [Centrum Silver Men Tablet] 1 each PO DAILY 03/27 Anemia: No Asthma: No Cancer: Yes (PROSTATE) Cardiac Disorders: No CVA: Yes ("MICRO-INFARCTS" VISION PROBLEMS (RESOLVED)) COPD: No CHF: No Dementia: Yes (MILD) Diabetes: No GI Disorders: Yes (DIVERTICULITIS GERD) Disorders: Yes (PROSTATE CANCER) HTN: Yes Hypercholesterolemia: No Liver Disease: No Seizures: No Thyroid Disease: No - Surgical History Abdominal Surgery: Yes (COLON RESECTION FOR DIVERTICULITIS, BILATERAL INGUINAL HERNIA REPAIRED) Appendectomy: No Cardiac Surgery: No Cholecystectomy: No Lung Surgery: No Neurologic Surgery: No Orthopedic Surgery: Yes (EPIDURAL FOR PAIN) - Immunization History Td Vaccination: Yes (UTD) Immunization Up to Date: No - Suicide/Smoking/Psychosocial Hx Smoking Status: No Smoking History: Never smoked Have you smoked in the past 12 months: No Number of Cigarettes Smoked Daily: 0 If you are a former smoker, when did you quit?: 1940 Information on smoking cessation initiated: Yes Hx Alcohol Use: Yes (SOCIAL) Drug/Substance Use Hx: No Substance Use Type: Alcohol Hx Substance Use Treatment: No Review of Systems - Review of Systems Comments:: 03/27/19 14:34 GENERAL/CONSTITUTIONAL: No fever or chills. No weakness. HEAD, EYES, EARS, NOSE AND THROAT: No change in vision. No ear pain or discharge. No sore throat. GASTROINTESTINAL: No nausea, vomiting, diarrhea or constipation. GENITOURINARY: No dysuria, frequency, or change in urination. CARDIOVASCULAR: No chest pain or shortness of breath. RESPIRATORY: No cough, wheezing, or hemoptysis. MUSCULOSKELETAL: No joint or muscle swelling or pain. No neck or back pain. SKIN: +insect bite NEUROLOGIC: No headache, vertigo, loss of consciousness, or change in strength/ sensation. ENDOCRINE: No increased thirst. No abnormal weight change. HEMATOLOGIC/LYMPHATIC: No anemia, easy bleeding, or history of blood clots. ALLERGIC/IMMUNOLOGIC: No hives or skin allergy. *Physical Exam - Vital Signs Last Vital Signs Temp Pulse Resp BP Pulse Ox 98.1 F 68 16 140/88 97 03/27/19 13:25 03/27/19 13:25 03/27/19 13:25 03/27/19 13:25 03/27/19 13:25 - Physical Exam Comments: 03/27/19 14:39 GENERAL: Awake, alert, and fully oriented, in no acute distress. Well appearing , well groomed. HEAD: No signs of trauma EYES: PERRLA, EOMI, sclera anicteric, conjunctiva clear ENT: Oropharynx clear without exudates. Moist mucosa NECK: Normal ROM, supple, no lymphadenopathy, JVD, or masses LUNGS: Breath sounds equal, clear to auscultation bilaterally. No wheezes, and no crackles HEART: Regular rate and rhythm, normal S1 and S2, no murmurs, rubs or gallops ABDOMEN: Soft, nontender, normoactive bowel sounds. No guarding, no rebound. No masses EXTREMITIES: Normal range of motion, no edema. No clubbing or cyanosis. No cords, erythema, or tenderness NEUROLOGICAL: Normal speech, cranial nerves intact, equal strength and sensation b/l SKIN: R ventral distal forearm with 5x7 area of erythema, warmth, no induration or fluctance with central puncture site. No discharge, streaking. Otherwise. Warm, Dry, normal turgor, no rashes or lesions noted. Medical Decision Making - Medical Decision Making 03/27/19 14:41 89yo M presents to the ED with pruritis to insect bite, now likely early cellulitis No systemic sxs Vital wnl Plan for keflex, and pt advised to use benadryl (he has at home) and hydrocortisone 1% for itching He will f/u with PMD within 2-3 days He is clinically stable for DC home I discussed the physical exam findings, ancillary test results and final diagnoses with the patient. I answered all of the patient's questions. The patient was satisfied with the care received and felt comfortable with the discharge plan and treatment plan. The patient will call their primary care physician within 24 hours to arrange follow-up and will return to the Emergency Department with any new, persistent or worsening symptoms. *DC/Admit/Observation/Transfer Diagnosis at time of Disposition: Insect bite, Localized pruritus, Cellulitis - Discharge Dispostion Disposition: HOME Condition at time of disposition: Stable - Prescriptions Prescriptions: Cephalexin [Keflex] 500 mg PO QID #28 capsule - Referrals Referrals: Paul Meyer [Primary Care Provider] - - Patient Instructions Printed Discharge Instructions: How to Care for an Insect Bite or Sting Additional Instructions: 1) Take the antihistamine pills for itching every 8 hours. Do not take if you are going to be driving as they can make you drowsy. 2) Apply hydrocortisone 1% cream to the itchy area twice a day. This cream is available over the counter. 3) Take the antibiotic as prescribed 4) Follow up with your primary care doctor in 2-3 days for further evaluation 5) Return to the emergency department if you have any new, worsening, or concerning symptoms It was a pleasure to take care of you today, we hope you get better soon! Dr. Jovel - Post Discharge Activity - Attestations Physician Attestion: 03/27/19 13:55 I, Dr. Leslee Jovel MD, attest that this document has been prepared under my direction and personally reviewed by me in its entirety. I further attest, that it accurately reflects all work, treatment, procedures and medical decision -making performed by me.
== END 2019-03-27 13:52 | disposition home or self-care (01) ==
LOC: FER 13:23
DX: S00.86XA Insect bite (nonvenomous) of other part of head, initial encounter (principal); L29.9 Pruritus, unspecified; L03.119 Cellulitis of unspecified part of limb; Z87.891 Personal history of nicotine dependence; I10 Essential (primary) hypertension; Z85.46 Personal history of malignant neoplasm of prostate; W57.XXXA Bitten or stung by nonvenomous insect and other nonvenomous arthropods, initial encounter; Y93.89 Activity, other specified; Y92.89 Other specified places as the place of occurrence of the external cause; K21.9 Gastro-esophageal reflux disease without esophagitis
CPT/HCPCS: 99281-25